=== PATIENT | male | born 1990 | race Caucasian/White ===

== ENCOUNTER 2020-08-09 21:36 | Emergency (ER) | payer OTHER ==
[~2020-08-09] VITALS: Ht 167.6 cm; Wt 73.0 kg
[2020-08-09 21:48] VITALS: BP 160/100
[2020-08-09] MEDS ORDERED: TETANUS, DIPHTHERIA, PERTUSSIS VAC/PF 0.5ML (>7YR OLD) IM ONE (22:30)
== END 2020-08-09 23:24 ==
LOC: ER 21:56
DX: S93.492A Sprain of other ligament of left ankle, initial encounter (principal); Y04.0XXA Assault by unarmed brawl or fight, initial encounter; Y93.89 Activity, other specified; Y92.89 Other specified places as the place of occurrence of the external cause; Y99.8 Other external cause status
CPT/HCPCS: 73610; 90471; 90715; 99283